=== PATIENT | male | born 1970 ===

== ENCOUNTER 2019-03-18 13:32 | Inpatient (IN) | payer MEDICAID ==
[2019-03-18 13:47] VITALS: BMI 20.7
[2019-03-18 13:48] VITALS: O2SAT 98
[2019-03-18] MEDS ORDERED: Sodium Chloride 0.9% 1,000 ML IV STA ×3 (14:12→18:58)
--- NOTE | 2019-03-18 14:19 | ED PDOC ---
Arrival/HPI - General Chief Complaint: High Blood Sugar Historian: Patient - History of Present Illness Narrative History of Present Illness (Text): 03/18/19 14:20 48 year old male, with past medical history of diabetes, presents to emergency department with complaints of foot pain for the past 2 days. Patient states his legs collapsed while walking and describes the pain as "throbbing." He also notes last taking metaformin for his diabetes three weeks ago, and states that he has no doctor currently due to his recent move. He also reports not having his glucometer or any other medical equipment with him since his recent divorce. Patient's glucose levels were found to be over 500 at triage. Patient admits to cocaine use, and states most recent use was a week ago. He denies any fevers, chest pain, or any other somatic complaints. Time/Duration: Other (2 days ) Symptom Onset: Gradual Symptom Course: Unchanged Quality: Throbbing Activities at Onset: Light Past Medical History - Provider Review Nursing Documentation Reviewed: Yes - Infectious Disease Hx of Infectious Diseases: None - Cardiac Hx Cardiac Disorders: No - Endocrine/Metabolic Hx Diabetes Mellitus Type 2: Yes - Hematological/Oncological Hx Blood Disorders: No - Psychiatric Hx Substance Use: Yes - Anesthesia Hx Anesthesia: No Hx Anesthesia Reactions: No Family/Social History - Physician Review Nursing Documentation Reviewed: Yes Family/Social History: Unknown Family HX Smoking Status: Unknown If Ever Smoked Hx Alcohol Use: Yes Frequency of alcohol use: Socially Hx Substance Use: Yes Substance used: cocaine Allergies/Home Meds Allergies/Adverse Reactions: Allergies No Known Allergies Allergy (Verified 03/18/19 13:47) Home Medications: Home Meds Medication Instructions Recorded Confirmed MetFORMIN [glucOPHAGE] 0 mg PO BID 03/18/19 03/18/19 Review of Systems - Physician Review All systems were reviewed & negative as marked: Yes - Review of Systems Constitutional: absent: Fevers Cardiovascular: absent: Chest Pain Musculoskeletal: Other (bilateral foot pain) Physical Exam - Physical Exam Narrative Physical Exam (Text): 03/18/19 14:20 Constitutional: No acute distress. Head: Normocephalic. Atraumatic. Eyes: PERRL. ENT: Moist mucous membranes. Neck: Supple. Cardiovascular: Regular rate. Chest: No tenderness. Respiratory: Clear to auscultation bilaterally. GI: Soft. Nontender. Nondistended. Back: No CVA tenderness. Musculoskeletal: Swelling, tenderness, errythema in the bilateral lower extremities, full ROM, DP pulses 2+ Skin: No rash. Neurologic: Alert, no focal deficit. Vital Signs Reviewed: Yes Vital Signs Temp Pulse Resp BP Pulse Ox 03/18/19 13:47 98.2 F 69 16 132/75 98 Temperature: Afebrile Blood Pressure: Normal Pulse: Regular Respiratory Rate: Normal Appearance: Positive for: Well-Appearing, Non-Toxic, Comfortable Pain Distress: None Mental Status: Positive for: Alert and Oriented X 3 Medical Decision Making ED Course and Treatment: 03/18/19 14:32 Impression: 48 year old male presents to emergency department for foot pain for the past two days. Plan: -- Labs -- EKG -- Chest X-ray -- IV Fluids -- X-ray right foot -- X-ray left foot -- Urinalysis -- US Duplex Lower Extremities -- Reassess and disposition Prior Visits: Notes and results from previous visits were reviewed. Progress Notes: 03/18/19 15:50 EKG: Ordered, reviewed, and independently interpreted the EKG. Rate : 62 BPM Rhythm : NSR Interpretation : No ST t-wave changes Dopper negative for DVT. XRs negative for fracture or dislocation CXR no acute disease. Patient requires admission for antibiotics for cellulitis with severe hyperglycemia, uncontrolled diabetes. - RAD Interpretation Radiology Orders: 03/18/19 14:12 CHEST PORTABLE [RAD] Stat 03/18/19 14:14 DUPLEX LOWER EXTRM VEIN BILAT [US] Stat - Medication Orders Current Medication Orders: Sodium Chloride (Sodium Chloride 0.9%) 1,000 mls @ 999 mls/hr IV .Q1H1M STA Stop: 03/18/19 15:12 - Scribe Statement The provider has reviewed the documentation as recorded by the Scribe Lavinia Lomas All medical record entries made by the Scribe were at my direction and personally dictated by me. I have reviewed the chart and agree that the record accurately reflects my personal performance of the history, physical exam, medical decision making, and the department course for this patient. I have also personally directed, reviewed, and agree with the discharge instructions and disposition. Disposition/Present on Arrival - Present on Arrival Any Indicators Present on Arrival: No History of DVT/PE: No History of Uncontrolled Diabetes: No Urinary Catheter: No History of Decub. Ulcer: No History Surgical Site Infection Following: None - Disposition Have Diagnosis and Disposition been Completed?: Yes Diagnosis: Cellulitis, Hyperglycemia Disposition: HOSPITALIZED Disposition Time: 17:00 Patient Plan: Admission Condition: FAIR
[2019-03-18 14:30] LABS: URINE BILIRUBIN NEGATIVE (NEGATIVE); URINE BLOOD NEGATIVE (NEGATIVE); URINE GLUCOSE (UA) >=1000 mg/dL (NEGATIVE); URINE LEUKOCYTE ESTERASE NEGATIVE Leu/uL (NEGATIVE); URINE PROTEIN NEGATIVE mg/dL (<30 mg/dL); URINE UROBILINOGEN 0.2 E.U./dL (<1 E.U./dL)
[2019-03-18 14:33] LABS: URINE APPEARANCE CLEAR (CLEAR); URINE COLOR YELLOW (YELLOW)
[2019-03-18 15:03] LABS: BARBITURATES, UR NEGATIVE (NEGATIVE); BENZODIAZEPINES, UR NEGATIVE (NEGATIVE); OPIATES, UR POSITIVE (NEGATIVE); PHENCYCLIDINE, UR NEGATIVE (NEGATIVE)
[2019-03-18 15:27] LABS: BASO # 0.01 K/mm3 (0.0-2.0); BASO % 0.1 % (0.0-3.0); EOS % 0.1 % (1.5-5.0); HEMOGLOBIN 12.7 g/dL (14.0-18.0); LYMPH # 1.1 (1.2-3.4); LYMPH % 7.7 % (22.0-35.0); MEAN CELL VOLUME 88.9 fl (80.0-105.0); MEAN CORPUSCULAR HEMOGLOBIN 30.1 pg (25.0-35.0); MEAN CORPUSCULAR HGB CONC 33.9 g/dl (31.0-37.0); MEAN PLATELET VOLUME 9.6 fl (7.0-11.0); MONO # 0.5 (0.1-0.6); MONO % 3.4 % (1.0-6.0); RBC 4.22 10^6/uL (3.5-6.1); RED CELL DISTRIBUTION WIDTH 13.5 % (11.5-14.5); WHITE BLOOD COUNT 13.7 10^3/uL (4.5-11.0)
[2019-03-18 15:36] LABS: INR 0.99; PARTIAL THROMBOPLASTIN TIME 28.3 Seconds (26.9-38.3)
[2019-03-18 15:50] LABS: VENOUS BLOOD GAS BASE EXCESS 2.3 mmol/L (0.0-2.0); VENOUS BLOOD GAS PO2 30 mm/Hg (30-55); VENOUS BLOOD PH 7.33 (7.32-7.43)
[2019-03-18 16:06] LABS: ALB/GLOB RATIO 1.5 (1.1-1.8); ALT/SGPT 51 U/L (7-56); AST/SGOT 39 U/L (17-59); BLOOD UREA NITROGEN 18 mg/dL (7-21); CALCIUM 9.3 mg/dL (8.4-10.5); GFR NON-AFRICAN AMERICAN > 60
[2019-03-18] MEDS ORDERED: Insulin Regular 1 UNITS/0.01 ML ML SC STA (17:23)
[2019-03-18] MEDS ORDERED: cefTRIAXone 1 gm 1 GM/100 ML BAG IVPB STA (17:24)
[2019-03-18] MEDS ORDERED: Dextrose 50% SYRINGE Inj (50 ml) IV PRN (18:39)
[2019-03-18] MEDS ORDERED: Enoxaparin 30 mg Syringe SC SCH (18:45)
[2019-03-18] MEDS ORDERED: Iohexol 240 (50 ml) ONE (19:05)
--- NOTE | 2019-03-18 19:14 | CP.PCM.HP ---
History of Present Illness - History of Present Illness History of Present Illness: Angel Daniels, , PGY1 H&P for Dr French LaboyC: b/l ankle pain/swelling x2 days 48 y/o male with PMH of DM2 presents to the ED with b/l ankle pain/swelling x2 days. Pain is 8/10, sharp, intermittent, alleviated by elevating the leg, worsens with walking, no radiation. It is associated with swelling limited to ankle area b/l, burning sensation. He denied trauma, recent infection/illness, fever, chills. Patient reports that he is diabetic for 2 years, incompliant with medication, does not f/u with PMD/podiatry/opthalmology. He denies hospitalization related to hyperglycemia/DKA. ROS positive for: polyurea, polydipsea, urinary urgency, blurry vision, 40 LB unintentional weight loss in 5 month, low energy, fatigue. ROS negative for: CP, SOB, cough, BARON, dizziness, hemoptysis, hematemesis, calf muscle swelling/pain PMH: DM2 PSH: abd surgery for ruptured gastric ulcer Meds: metformin 500 bid (did not take for 3 weeks) All:NDKA FH: dose not know SH: smokes 10 cigarettes/day x10 years, denies illicit drugs/alcohol PMD: none Pharmacy: none Present on Admission - Present on Admission Any Indicators Present on Admission: Yes History of Uncontrolled Diabetes: Yes Past Patient History - Infectious Disease Hx of Infectious Diseases: None - Past Social History Smoking Status: Unknown If Ever Smoked - CARDIAC Hx Cardiac Disorders: No - ENDOCRINE/METABOLIC Hx Diabetes Mellitus Type 2: Yes - HEMATOLOGICAL/ONCOLOGICAL Hx Blood Disorders: No - PSYCHIATRIC Hx Substance Use: Yes - ANESTHESIA Hx Anesthesia: No Hx Anesthesia Reactions: No Meds Allergies/Adverse Reactions: Allergies Allergy/AdvReac Type Severity Reaction Status Date / Time No Known Allergies Allergy Verified 03/18/19 13:47 Physical Exam - Constitutional Appears: Non-toxic, Cachectic - Head Exam Head Exam: ATRAUMATIC, NORMAL INSPECTION, NORMOCEPHALIC - Eye Exam Eye Exam: EOMI, Normal appearance, PERRL Pupil Exam: NORMAL ACCOMODATION, PERRL - ENT Exam ENT Exam: Mucous Membranes Moist, Normal Exam - Neck Exam Neck exam: Positive for: Normal Inspection. Negative for: Lymphadenopathy - Respiratory Exam Respiratory Exam: Clear to Auscultation Bilateral, NORMAL BREATHING PATTERN. absent: Rhonchi, Wheezes - Cardiovascular Exam Cardiovascular Exam: REGULAR RHYTHM, +S1, +S2. absent: JVD, RRR - GI/Abdominal Exam GI & Abdominal Exam: Normal Bowel Sounds, Soft. absent: Guarding, Rigid, Tenderness Additional comments: mid-abdominal healed scar - Expanded Lower Extremities Exam Left Ankle exam: erythema, swelling, tenderness Right Ankle exam: erythema, swelling, tenderness - Back Exam Back exam: NORMAL INSPECTION. absent: rash noted, tenderness - Neurological Exam Neurological exam: Alert, CN II-XII Intact, Oriented x3, Reflexes Normal - Psychiatric Exam Psychiatric exam: Anxious, Depressed - Skin Skin Exam: Erythema (ankle b/l. no open wound, no discharge) Results - Vital Signs Recent Vital Signs: Last Vital Signs Temp 98.2 F 03/18/19 13:47 Pulse 63 03/18/19 16:11 Resp 16 03/18/19 16:11 BP 109/67 03/18/19 16:11 Pulse Ox 98 03/18/19 16:11 - Labs Result Diagrams: 03/18/19 15:00 03/18/19 15:00 Labs: Laboratory Results - last 24 hr 03/18/19 03/18/19 03/18/19 13:39 14:20 14:20 WBC RBC Hgb Hct MCV MCH MCHC RDW Plt Count MPV Neut % (Auto) Lymph % (Auto) [place] % (Auto) Eos % (Auto) Baso % (Auto) Lymph # (Auto) [place] # (Auto) Eos # (Auto) Baso # (Auto) Absolute Neuts (auto) ESR PT INR APTT pO2 VBG pH VBG pCO2 VBG HCO3 VBG O2 Sat (Calc) VBG Base Excess Sodium Potassium Chloride Carbon Dioxide Anion Gap BUN Creatinine Est GFR ( Amer) Est GFR (Non-Af Amer) POC Glucose (mg/dL) > 500 H* Random Glucose Calcium Phosphorus Magnesium Total Bilirubin AST ALT Alkaline Phosphatase Total Creatine Kinase Total Protein Albumin Globulin Albumin/Globulin Ratio Urine Color Yellow Urine Appearance Clear Urine pH 6.0 Ur Specific Erin 1.010 Urine Protein Negative Urine Glucose (UA) >=1000 Urine Ketones 40 H Urine Blood Negative Urine Nitrate Negative Urine Bilirubin Negative Urine Urobilinogen 0.2 Ur Leukocyte Esterase Negative Urine Opiates Screen Positive H Urine Methadone Screen Negative Ur Barbiturates Screen Negative Ur Phencyclidine Scrn Negative Ur Amphetamines Screen Negative U Benzodiazepines Scrn Negative U Oth Cocaine Metabols Positive H U Cannabinoids Screen Negative 03/18/19 03/18/19 03/18/19 15:00 15:00 15:00 WBC 13.7 H RBC 4.22 Hgb 12.7 L Hct 37.5 L MCV 88.9 MCH 30.1 MCHC 33.9 RDW 13.5 Plt Count 199 MPV 9.6 Neut % (Auto) 88.7 H Lymph % (Auto) 7.7 L [place] % (Auto) 3.4 Eos % (Auto) 0.1 L Baso % (Auto) 0.1 Lymph # (Auto) 1.1 L [place] # (Auto) 0.5 Eos # (Auto) 0.0 Baso # (Auto) 0.01 Absolute Neuts (auto) 12.17 H ESR 32 H PT 11.0 INR 0.99 APTT 28.3 pO2 VBG pH VBG pCO2 VBG HCO3 VBG O2 Sat (Calc) VBG Base Excess Sodium 135 Potassium 4.2 Chloride 94 L Carbon Dioxide 29 Anion Gap 16 BUN 18 Creatinine 0.6 L Est GFR ( Amer) > 60 Est GFR (Non-Af Amer) > 60 POC Glucose (mg/dL) Random Glucose 404 H* Calcium 9.3 Phosphorus 4.1 Magnesium 1.7 Total Bilirubin 0.7 AST 39 ALT 51 Alkaline Phosphatase 92 Total Creatine Kinase 69 Total Protein 6.7 Albumin 4.0 Globulin 2.7 Albumin/Globulin Ratio 1.5 Urine Color Urine Appearance Urine pH Ur Specific Erin Urine Protein Urine Glucose (UA) Urine Ketones Urine Blood Urine Nitrate Urine Bilirubin Urine Urobilinogen Ur Leukocyte Esterase Urine Opiates Screen Urine Methadone Screen Ur Barbiturates Screen Ur Phencyclidine Scrn Ur Amphetamines Screen U Benzodiazepines Scrn U Oth Cocaine Metabols U Cannabinoids Screen 03/18/19 15:40 WBC RBC Hgb Hct MCV MCH MCHC RDW Plt Count MPV Neut % (Auto) Lymph % (Auto) [place] % (Auto) Eos % (Auto) Baso % (Auto) Lymph # (Auto) [place] # (Auto) Eos # (Auto) Baso # (Auto) Absolute Neuts (auto) ESR PT INR APTT pO2 30 VBG pH 7.33 VBG pCO2 56.0 VBG HCO3 29.5 H VBG O2 Sat (Calc) 68.6 H VBG Base Excess 2.3 H Sodium Potassium Chloride Carbon Dioxide Anion Gap BUN Creatinine Est GFR ( Amer) Est GFR (Non-Af Amer) POC Glucose (mg/dL) Random Glucose Calcium Phosphorus Magnesium Total Bilirubin AST ALT Alkaline Phosphatase Total Creatine Kinase Total Protein Albumin Globulin Albumin/Globulin Ratio Urine Color Urine Appearance Urine pH Ur Specific [place] Urine Protein Urine Glucose (UA) Urine Ketones Urine Blood Urine Nitrate Urine Bilirubin Urine Urobilinogen Ur Leukocyte Esterase Urine Opiates Screen Urine Methadone Screen Ur Barbiturates Screen Ur Phencyclidine Scrn Ur Amphetamines Screen U Benzodiazepines Scrn U Oth Cocaine Metabols U Cannabinoids Screen Assessment & Plan - Assessment and Plan (Free Text) Assessment: 48 y/o male with PMH of DM2 presents to the ED with b/l ankle pain/swelling x2 days. Found to have hyperglycemia. Patient is admitted to med surg for hyperglycemia management and work up for LE pain/edema Plan: Hyperglycemia in the setting of uncontrolled DM and meds non compliance: -BG 500 on admission. no acidosis, no AG, no lytes abnormalities. Patient is not in DKA -VB.33/56/30 -IVF NS boluses 3L, then @150 cc/hr -ISS-med -accucheck -started glipizide 5 mg daily -UA: increased ketones -albumin/globulin ratio B/l ankle pain/ edema: -LE US negative for DVT -ESR 32 -started abx vanco/rocephin -tylenol prn for moderate pain, ultram prn for severe pain -f/u XR b/l foot -f/u blood cx Diabetic neuropathy: -started neurontin 200 tid h/o weight loss: -CT A/P w/ po contrast -CT chest -f/u hepatitis panel, HIV testing h/o smoking: -started nicotine patch 14 mg td -counseled for cessation -UDS: positive for opiates/cocaine (patient denied) Anxiety: -patient received psychtherpy on the past -not on any meds PPX: -DVT: SCD, lovenox -GI: pepcid Case reviewed and plan discussed with attending Dr Lulu Daniels, DO -
[2019-03-18] MEDS ORDERED: Insulin Reg-MEDIUM-Coverage SC SCH (22:00)
[2019-03-18] MEDS ORDERED: Sodium Chloride 0.9% 1,000 ML IV SCH (22:00)
[2019-03-18 23:25] LABS: ARTERIAL BLOOD GAS HCO3 29.2 mmol/L (21-28); ARTERIAL BLOOD GAS O2 SAT 99.6 % (95-98); ARTERIAL BLOOD GAS PCO2 46 mm/Hg (35-45); ARTERIAL BLOOD GAS PH 7.41 (7.35-7.45); ARTERIAL BLOOD GAS TCO2 30.6 mmol.L (22-28)
[2019-03-19 06:51] LABS: BASO # 0.01 K/mm3 (0.0-2.0); BASO % 0.1 % (0.0-3.0); EOS % 0.4 % (1.5-5.0); HEMOGLOBIN 12.9 g/dL (14.0-18.0); LYMPH % 18.6 % (22.0-35.0); MEAN CORPUSCULAR HEMOGLOBIN 29.7 pg (25.0-35.0); MEAN CORPUSCULAR HGB CONC 33.7 g/dl (31.0-37.0); MEAN PLATELET VOLUME 9.4 fl (7.0-11.0); MONO # 0.6 (0.1-0.6); MONO % 5.2 % (1.0-6.0); RBC 4.35 10^6/uL (3.5-6.1); RED CELL DISTRIBUTION WIDTH 13.6 % (11.5-14.5); WHITE BLOOD COUNT 10.7 10^3/uL (4.5-11.0)
[2019-03-19 06:57] LABS: IRON 59 ug/dL (45-180)
[2019-03-19 06:59] LABS: LDL CHOLESTEROL 97 mg/dL (0-129)
[2019-03-19 07:06] LABS: % IRON SATURATION 30 % (20-55); TOTAL IRON BINDING CAPACITY 193 ug/dL (261-462)
[2019-03-19] MEDS ORDERED: Insulin Reg-HIGH-Coverage SC SCH (07:30)
[2019-03-19 07:58] LABS: ALB/GLOB RATIO 1.1 (1.1-1.8); ALBUMIN 2.9 g/dL (3.0-4.8); ALT/SGPT 39 U/L (7-56); AST/SGOT 32 U/L (17-59); BLOOD UREA NITROGEN 18 mg/dL (7-21); CALCIUM 8.3 mg/dL (8.4-10.5); GFR NON-AFRICAN AMERICAN > 60; HDL CHOLESTEROL 55 mg/dL (29-60)
[2019-03-19 08:23] VITALS: BP 121/77; PULSE 61; RESP 18; TEMP 98.3
--- NOTE | 2019-03-19 09:06 | CT ---
Date of service: 03/18/2019 PROCEDURE: CT Chest, Abdomen and Pelvis without intravenous contrast HISTORY: weight loss COMPARISON: None available. TECHNIQUE: Radiation dose: Total exam DLP = 324.23 mGy-cm. This CT exam was performed using one or more of the following dose reduction techniques: Automated exposure control, adjustment of the mA and/or kV according to patient size, and/or use of iterative reconstruction technique. FINDINGS: CT CHEST WITHOUT CONTRAST: LUNGS: Clear. No nodule, mass or consolidation. MEDIASTINUM: Unremarkable. Normal caliber aorta and pulmonary arterial trunk. Normal size heart. LYMPH NODES: Unremarkable. PLEURA: Unremarkable. No pneumothorax. No pleural fluid. BONES: Unremarkable. OTHER FINDINGS: None. CT ABDOMEN AND PELVIS: LIVER: Unremarkable. No gross lesion or ductal dilatation. GALLBLADDER AND BILE DUCTS: Not visualized PANCREAS: Pancreas is not visualized. There is nearly complete absence of abdominal fat and there is no IV contrast. Pancreas cannot be from non-opacified bowel loops and fluid in the stomach SPLEEN: Unremarkable. ADRENALS: The left adrenal is difficult to visualize due to lack of surrounding fat KIDNEYS AND URETERS: Unremarkable. No hydronephrosis. No solid mass. VASCULATURE: No aortic atherosclerotic calcification or mural plaque present. Unremarkable. No aortic aneurysm. BOWEL: Unremarkable. No obstruction. No gross mural thickening. There is mild constipation APPENDIX: Not visualized PERITONEUM: Unremarkable. No free fluid. No free air. LYMPH NODES: Unremarkable. No enlarged lymph nodes. BLADDER: Unremarkable. REPRODUCTIVE: Unremarkable. BONES: No acute fracture. OTHER FINDINGS: The report concurs with the preliminary [facility] report IMPRESSION: No acute intrathoracic findings. The abdominal exam is limited by lack of abdominal fat and lack of IV contrast.
--- NOTE | 2019-03-19 09:45 | RAD ---
Date of service: 03/18/2019 HISTORY: hyperglycemia COMPARISON: No prior. TECHNIQUE: 1 view obtained. FINDINGS: LUNGS: No active pulmonary disease. PLEURA: No significant pleural effusion identified, no pneumothorax apparent. CARDIOVASCULAR: No aortic atherosclerotic calcification present. Normal cardiac size. No pulmonary vascular congestion. OSSEOUS STRUCTURES: No significant abnormalities. VISUALIZED UPPER ABDOMEN: Normal. OTHER FINDINGS: None. IMPRESSION: No active disease.
[2019-03-19] MEDS ORDERED: cefTRIAXone 1 gm 1 GM/100 ML BAG IVPB SCH (10:00)
[2019-03-19] MEDS ORDERED: Vancomycin 1gm in NS 250ml 1 GM/250 ML BAG IVPB SCH (10:00)
[2019-03-19] MEDS ORDERED: Enoxaparin 30 mg Syringe SC SCH (10:00)
--- NOTE | 2019-03-19 10:45 | RAD ---
Date of service: 03/18/2019 PROCEDURE: Left Foot Radiographs. HISTORY: foot pain, swelling, erythema COMPARISON: None. TECHNIQUE: 3 views obtained. FINDINGS: BONES: Normal. No fracture. JOINTS: Normal. SOFT TISSUES: Normal. OTHER FINDINGS: None. IMPRESSION: Normal left foot radiographs.
--- NOTE | 2019-03-19 10:46 | RAD ---
Date of service: 03/18/2019 PROCEDURE: Right Foot Radiographs. HISTORY: foot pain, swelling, erythema COMPARISON: None. TECHNIQUE: 3 views obtained. FINDINGS: BONES: Normal. No fracture. JOINTS: Normal. SOFT TISSUES: Normal. OTHER FINDINGS: None. IMPRESSION: Normal right foot radiographs.
[2019-03-19] MEDS ORDERED: Insulin Reg-LOW-Coverage SC SCH (11:30)
[2019-03-19 11:47] LABS: HEPATITIS B SURFACE AG Negative (NEGATIVE)
[2019-03-19 11:53] LABS: HEPATITIS A IGM NEGATIVE (NEGATIVE); HEPATITIS B CORE AB NEGATIVE (NEGATIVE)
[2019-03-19 12:28] LABS: FOLATE 10.5 ng/mL
[2019-03-19 12:36] LABS: HEPATITIS C ANTIBODY REACTIVE (NEGATIVE)
--- NOTE | 2019-03-19 13:28 | CARD ---
APPROVED REPORT Date of service: 03/18/2019 EKG Measurement Heart [id number] <Conclusion> Normal sinus rhythm Normal ECG
--- NOTE | 2019-03-19 13:55 | CP.PCM.DIS ---
<Angel Daniels - Last Filed: 03/19/19 13:44> Provider - Provider Date of Admission: 03/18/19 17:33 Attending physician: Jovana Lawson MD Primary care physician: NO PRIMARY CARE PROVIDER Consults: 03/18/19 18:13 Social Work Referral Routine Comment: Patient recently evicted from home, homeless Physician Instructions: Reason For Exam: Protocol 03/19/19 07:41 Endocrinology Consult Routine Comment: Consulting Provider: Naty Mendoza Consulting Physician: Naty Mendoza Reason for Consult: hyperglycemia Time Spent in preparation of Discharge (in minutes): 35 Hospital Course - Lab Results Lab Results: Most Recent Lab Values WBC 10.7 10^3/uL (4.5-11.0) D 03/19/19 05:00 RBC 4.35 10^6/uL (3.5-6.1) 03/19/19 05:00 Hgb 12.9 g/dL (14.0-18.0) L 03/19/19 05:00 Hct 38.3 % (42.0-52.0) L 03/19/19 05:00 MCV 88.0 fl (80.0-105.0) 03/19/19 05:00 MCH 29.7 pg (25.0-35.0) 03/19/19 05:00 MCHC 33.7 g/dl (31.0-37.0) 03/19/19 05:00 RDW 13.6 % (11.5-14.5) 03/19/19 05:00 Plt Count 192 10^3/uL (120.0-450.0) 03/19/19 05:00 MPV 9.4 fl (7.0-11.0) 03/19/19 05:00 Neut % (Auto) 75.7 % (50.0-68.0) H 03/19/19 05:00 Lymph % (Auto) 18.6 % (22.0-35.0) L 03/19/19 05:00 [place] % (Auto) 5.2 % (1.0-6.0) 03/19/19 05:00 Eos % (Auto) 0.4 % (1.5-5.0) L 03/19/19 05:00 Baso % (Auto) 0.1 % (0.0-3.0) 03/19/19 05:00 Lymph # (Auto) 2.0 (1.2-3.4) 03/19/19 05:00 [place] # (Auto) 0.6 (0.1-0.6) 03/19/19 05:00 Eos # (Auto) 0.0 (0.0-0.7) 03/19/19 05:00 Baso # (Auto) 0.01 K/mm3 (0.0-2.0) 03/19/19 05:00 Absolute Neuts (auto) 8.09 (1.4-6.5) H 03/19/19 05:00 ESR 32 mm/hr (0.0-15.0) H 03/18/19 15:00 PT 11.0 SECONDS (9.4-12.5) 03/18/19 15:00 INR 0.99 03/18/19 15:00 APTT 28.3 Seconds (26.9-38.3) 03/18/19 15:00 pCO2 46 mm/Hg (35-45) H 03/18/19 23:00 pO2 91.0 mm/Hg (80-100) 03/18/19 23:00 HCO3 29.2 mmol/L (21-28) H 03/18/19 23:00 ABG pH 7.41 (7.35-7.45) 03/18/19 23:00 ABG Total CO2 30.6 mmol.L (22-28) H 03/18/19 23:00 ABG O2 Saturation 99.6 % (95-98) H 03/18/19 23:00 ABG Base Excess 3.8 mmol/L (-2.0-3.0) H 03/18/19 23:00 ABG Potassium 3.8 mmol/L (3.6-5.2) 03/18/19 23:00 VBG pH 7.33 (7.32-7.43) 03/18/19 15:40 VBG pCO2 56.0 (40-60) 03/18/19 15:40 VBG HCO3 29.5 mmol/l (21-28) H 03/18/19 15:40 VBG O2 Sat (Calc) 68.6 % (40-65) H 03/18/19 15:40 VBG Base Excess 2.3 mmol/L (0.0-2.0) H 03/18/19 15:40 Sodium 133.0 mmol/L (132-148) 03/18/19 23:00 Chloride 97.0 mmol/L (98-107) L 03/18/19 23:00 Glucose 504 mg/dl (75-110) H* 03/18/19 23:00 Lactate 0.7 mmol/L (0.7-2.1) 03/18/19 23:00 FiO2 21.0 % 03/18/19 23:00 Crit Value Called To Vivienne tamayo 03/18/19 23:00 [place] [id number] 03/18/19 23:00 Blood Gas Notified Time 232403/18/19 23:00 Sodium 136 mmol/L (132-148) 03/19/19 05:00 Potassium 3.8 mmol/L (3.6-5.0) 03/19/19 05:00 Chloride 100 mmol/L (98-107) 03/19/19 05:00 Carbon Dioxide 31 mmol/L (21-33) 03/19/19 05:00 Anion Gap 9 (10-20) L 03/19/19 05:00 BUN 18 mg/dL (7-21) 03/19/19 05:00 Creatinine 0.5 mg/dl (0.8-1.5) L 03/19/19 05:00 Est GFR ( Amer) > 60 03/19/19 05:00 Est GFR (Non-Af Amer) > 60 03/19/19 05:00 POC Glucose (mg/dL) 112 mg/dL (65-110) H 03/19/19 07:26 Random Glucose 111 mg/dL (70-110) H 03/19/19 05:00 Hemoglobin A1c 19.7 % (4.2-6.5) H 03/19/19 05:00 Calcium 8.3 mg/dL (8.4-10.5) L 03/19/19 05:00 Phosphorus 4.1 mg/dL (2.5-4.5) 03/18/19 15:00 Magnesium 1.7 mg/dL (1.7-2.2) 03/19/19 05:00 Iron 59 ug/dL (45-180) 03/19/19 05:00 TIBC 193 ug/dL (261-462) L 03/19/19 05:00 % Saturation 30 % (20-55) 03/19/19 05:00 Ferritin 128.0 ng/mL 03/19/19 05:00 Total Bilirubin 0.5 mg/dL (0.2-1.3) 03/19/19 05:00 AST 32 U/L (17-59) 03/19/19 05:00 ALT 39 U/L (7-56) 03/19/19 05:00 Alkaline Phosphatase 73 U/L (38-126) 03/19/19 05:00 Total Creatine Kinase 69 U/L (35-230) 03/18/19 15:00 C-React Prot High Sens > 15.00 mg/L (1.00-3.00) H 03/19/19 05:00 Total Protein 5.5 g/dL (5.8-8.3) L 03/19/19 05:00 Albumin 2.9 g/dL (3.0-4.8) L 03/19/19 05:00 Globulin 2.6 gm/dL 03/19/19 05:00 Albumin/Globulin Ratio 1.1 (1.1-1.8) 03/19/19 05:00 Triglycerides 54 mg/dL (35-160) 03/19/19 05:00 Cholesterol 168 mg/dL (130-200) 03/19/19 05:00 LDL Cholesterol Direct 97 mg/dL (0-129) 03/19/19 05:00 HDL Cholesterol 55 mg/dL (29-60) 03/19/19 05:00 Vitamin B12 908 pg/mL (239-931) 03/18/19 15:00 Folate 10.5 ng/mL 03/19/19 05:00 Free T4 0.87 ng/dL (0.78-2.19) 03/19/19 08:00 TSH 3rd Generation 0.34 mIU/mL (0.46-4.68) L 03/19/19 05:00 Arterial Blood Potassium 3.8 mmol/L (3.6-5.2) 03/18/19 23:00 Urine Color Yellow (YELLOW) 03/18/19 14:20 Urine Appearance Clear (CLEAR) 03/18/19 14:20 Urine pH 6.0 (4.7-8.0) 03/18/19 14:20 Ur Specific [place] 1.010 (1.005-1.035) 03/18/19 14:20 Urine Protein Negative mg/dL (<30 mg/dL) 03/18/19 14:20 Urine Glucose (UA) >=1000 mg/dL (NEGATIVE) 03/18/19 14:20 Urine Ketones 40 mg/dL (NEGATIVE) H 03/18/19 14:20 Urine Blood Negative (NEGATIVE) 03/18/19 14:20 Urine Nitrate Negative (NEGATIVE) 03/18/19 14:20 Urine Bilirubin Negative (NEGATIVE) 03/18/19 14:20 Urine Urobilinogen 0.2 E.U./dL (<1 E.U./dL) 03/18/19 14:20 Ur Leukocyte Esterase Negative Pratik/uL (NEGATIVE) 03/18/19 14:20 Urine Opiates Screen Positive (NEGATIVE) H 03/18/19 14:20 Urine Methadone Screen Negative (NEGATIVE) 03/18/19 14:20 Ur Barbiturates Screen Negative (NEGATIVE) 03/18/19 14:20 Ur Phencyclidine Scrn Negative (NEGATIVE) 03/18/19 14:20 Ur Amphetamines Screen Negative (NEGATIVE) 03/18/19 14:20 U Benzodiazepines Scrn Negative (NEGATIVE) 03/18/19 14:20 U Oth Cocaine Metabols Positive (NEGATIVE) H 03/18/19 14:20 U Cannabinoids Screen Negative (NEGATIVE) 03/18/19 14:20 B-Hydroxybutyrate 3.61 mM (0.02-0.27) H 03/18/19 15:00 Hepatitis A IgM Ab Negative (NEGATIVE) 03/19/19 05:00 Hep Bs Antigen Negative (NEGATIVE) 03/19/19 05:00 Hep B Core IgM Ab Negative (NEGATIVE) 03/19/19 05:00 Hepatitis C Antibody Reactive (NEGATIVE) 03/19/19 05:00 - Hospital Course Hospital Course: On admission: 48 y/o male with PMH of DM2 presents to the ED with b/l ankle pain/swelling x2 days. Pain is 8/10, sharp, intermittent, alleviated by elevating the leg, worsens with walking, no radiation. It is associated with swelling limited to ankle area b/l, burning sensation. He denied trauma, recent infection/illness, fever, chills. Patient reports that he is diabetic for 2 years, incompliant with medication, does not f/u with PMD/podiatry/opthalmology. He denies hospitalization related to hyperglycemia/DKA. ROS positive for: polyurea, polydipsea, urinary urgency, blurry vision, 40 LB unintentional weight loss in 5 month, low energy, fatigue. Hospital course: Blood glucose was 500 on admission. no acidosis, no AG, no lytes abnormalities. Patient is not in DKA. VBG 7.33/56/30. UA showed increased ketones. IVF NS boluses 3L given, then @150 cc/hr. ISS-med with accucheck. Started glipizide 5 mg daily. LE US negative for DVT, ESR 32, started abx vanco/rocephin, tylenol prn for moderate pain, ultram prn for severe pain. b/l foot XR normal. CT abdomen/pelvis/chest did not show any acute findings. Started nicotine patch 14 mg td and patient counseled for cessation. UDS was positive for opiates/cocaine. Today patient left AMA. Unable to give medications, patient left without being seen. Unable to explain risks. Patient left without signing AMA form. Discharge Exam - Additional Findings Additional findings: Patient left AMA Discharge Plan - Follow Up Plan Condition: FAIR Disposition: AGAINST MEDICAL ADVICE Instructions: Cellulitis (ED) Referrals: PCP,NO [Primary Care Provider] - <Etta Hernández R - Last Filed: 03/20/19 08:30> Provider - Provider Date of Admission: 03/18/19 17:33 Attending physician: Jovana Lawson MD Primary care physician: NO PRIMARY CARE PROVIDER Consults: 03/18/19 18:13 Social Work Referral Routine Comment: Patient recently evicted from home, homeless Physician Instructions: Reason For Exam: Protocol 03/19/19 07:41 Endocrinology Consult Routine Comment: Consulting Provider: Naty Mendoza Consulting Physician: Naty Mendoza Reason for Consult: hyperglycemia Hospital Course - Lab Results Lab Results: Micro Results 03/18/19 15:00 Blood-Venous Blood Culture - Preliminary Gram Positive Cocci 03/18/19 15:00 Blood-Venous Gram Stain - Final 03/18/19 14:20 Urine Random Urine Culture - Final Staphylococcus Aureus 03/18/19 15:15 Blood-Venous Blood Culture - Preliminary Gram Positive Cocci 03/18/19 15:15 Blood-Venous Gram Stain - Final Most Recent Lab Values WBC 10.7 10^3/uL (4.5-11.0) D 03/19/19 05:00 RBC 4.35 10^6/uL (3.5-6.1) 03/19/19 05:00 Hgb 12.9 g/dL (14.0-18.0) L 03/19/19 05:00 Hct 38.3 % (42.0-52.0) L 03/19/19 05:00 MCV 88.0 fl (80.0-105.0) 03/19/19 05:00 MCH 29.7 pg (25.0-35.0) 03/19/19 05:00 MCHC 33.7 g/dl (31.0-37.0) 03/19/19 05:00 RDW 13.6 % (11.5-14.5) 03/19/19 05:00 Plt Count 192 10^3/uL (120.0-450.0) 03/19/19 05:00 MPV 9.4 fl (7.0-11.0) 03/19/19 05:00 Neut % (Auto) 75.7 % (50.0-68.0) H 03/19/19 05:00 Lymph % (Auto) 18.6 % (22.0-35.0) L 03/19/19 05:00 [place] % (Auto) 5.2 % (1.0-6.0) 03/19/19 05:00 Eos % (Auto) 0.4 % (1.5-5.0) L 03/19/19 05:00 Baso % (Auto) 0.1 % (0.0-3.0) 03/19/19 05:00 Lymph # (Auto) 2.0 (1.2-3.4) 03/19/19 05:00 [place] # (Auto) 0.6 (0.1-0.6) 03/19/19 05:00 Eos # (Auto) 0.0 (0.0-0.7) 03/19/19 05:00 Baso # (Auto) 0.01 K/mm3 (0.0-2.0) 03/19/19 05:00 Absolute Neuts (auto) 8.09 (1.4-6.5) H 03/19/19 05:00 ESR 32 mm/hr (0.0-15.0) H 03/18/19 15:00 PT 11.0 SECONDS (9.4-12.5) 03/18/19 15:00 INR 0.99 03/18/19 15:00 APTT 28.3 Seconds (26.9-38.3) 03/18/19 15:00 pCO2 46 mm/Hg (35-45) H 03/18/19 23:00 pO2 91.0 mm/Hg (80-100) 03/18/19 23:00 HCO3 29.2 mmol/L (21-28) H 03/18/19 23:00 ABG pH 7.41 (7.35-7.45) 03/18/19 23:00 ABG Total CO2 30.6 mmol.L (22-28) H 03/18/19 23:00 ABG O2 Saturation 99.6 % (95-98) H 03/18/19 23:00 ABG Base Excess 3.8 mmol/L (-2.0-3.0) H 03/18/19 23:00 ABG Potassium 3.8 mmol/L (3.6-5.2) 03/18/19 23:00 VBG pH 7.33 (7.32-7.43) 03/18/19 15:40 VBG pCO2 56.0 (40-60) 03/18/19 15:40 VBG HCO3 29.5 mmol/l (21-28) H 03/18/19 15:40 VBG O2 Sat (Calc) 68.6 % (40-65) H 03/18/19 15:40 VBG Base Excess 2.3 mmol/L (0.0-2.0) H 03/18/19 15:40 Sodium 133.0 mmol/L (132-148) 03/18/19 23:00 Chloride 97.0 mmol/L (98-107) L 03/18/19 23:00 Glucose 504 mg/dl (75-110) H* 03/18/19 23:00 Lactate 0.7 mmol/L (0.7-2.1) 03/18/19 23:00 FiO2 21.0 % 03/18/19 23:00 Crit Value Called To Vivienne tamayo 03/18/19 23:00 [place] [id number] 03/18/19 23:00 Blood Gas Notified Time 6023 03/18/19 23:00 Sodium 136 mmol/L (132-148) 03/19/19 05:00 Potassium 3.8 mmol/L (3.6-5.0) 03/19/19 05:00 Chloride 100 mmol/L (98-107) 03/19/19 05:00 Carbon Dioxide 31 mmol/L (21-33) 03/19/19 05:00 Anion Gap 9 (10-20) L 03/19/19 05:00 BUN 18 mg/dL (7-21) 03/19/19 05:00 Creatinine 0.5 mg/dl (0.8-1.5) L 03/19/19 05:00 Est GFR ( Amer) > 60 03/19/19 05:00 Est GFR (Non-Af Amer) > 60 03/19/19 05:00 POC Glucose (mg/dL) 112 mg/dL (65-110) H 03/19/19 07:26 Random Glucose 111 mg/dL (70-110) H 03/19/19 05:00 Hemoglobin A1c 19.7 % (4.2-6.5) H 03/19/19 05:00 Calcium 8.3 mg/dL (8.4-10.5) L 03/19/19 05:00 Phosphorus 4.1 mg/dL (2.5-4.5) 03/18/19 15:00 Magnesium 1.7 mg/dL (1.7-2.2) 03/19/19 05:00 Iron 59 ug/dL (45-180) 03/19/19 05:00 TIBC 193 ug/dL (261-462) L 03/19/19 05:00 % Saturation 30 % (20-55) 03/19/19 05:00 Ferritin 128.0 ng/mL 03/19/19 05:00 Total Bilirubin 0.5 mg/dL (0.2-1.3) 03/19/19 05:00 AST 32 U/L (17-59) 03/19/19 05:00 ALT 39 U/L (7-56) 03/19/19 05:00 Alkaline Phosphatase 73 U/L (38-126) 03/19/19 05:00 Total Creatine Kinase 69 U/L (35-230) 03/18/19 15:00 C-React Prot High Sens > 15.00 mg/L (1.00-3.00) H 03/19/19 05:00 Total Protein 5.5 g/dL (5.8-8.3) L 03/19/19 05:00 Albumin 2.9 g/dL (3.0-4.8) L 03/19/19 05:00 Globulin 2.6 gm/dL 03/19/19 05:00 Albumin/Globulin Ratio 1.1 (1.1-1.8) 03/19/19 05:00 Triglycerides 54 mg/dL (35-160) 03/19/19 05:00 Cholesterol 168 mg/dL (130-200) 03/19/19 05:00 LDL Cholesterol Direct 97 mg/dL (0-129) 03/19/19 05:00 HDL Cholesterol 55 mg/dL (29-60) 03/19/19 05:00 Vitamin B12 908 pg/mL (239-931) 03/18/19 15:00 Folate 10.5 ng/mL 03/19/19 05:00 Procalcitonin 4.26 NG/ML (0.19-0.49) H 03/19/19 09:00 Free T4 0.87 ng/dL (0.78-2.19) 03/19/19 08:00 TSH 3rd Generation 0.34 mIU/mL (0.46-4.68) L 03/19/19 05:00 Arterial Blood Potassium 3.8 mmol/L (3.6-5.2) 03/18/19 23:00 Urine Color Yellow (YELLOW) 03/18/19 14:20 Urine Appearance Clear (CLEAR) 03/18/19 14:20 Urine pH 6.0 (4.7-8.0) 03/18/19 14:20 Ur Specific [place] 1.010 (1.005-1.035) 03/18/19 14:20 Urine Protein Negative mg/dL (<30 mg/dL) 03/18/19 14:20 Urine Glucose (UA) >=1000 mg/dL (NEGATIVE) 03/18/19 14:20 Urine Ketones 40 mg/dL (NEGATIVE) H 03/18/19 14:20 Urine Blood Negative (NEGATIVE) 03/18/19 14:20 Urine Nitrate Negative (NEGATIVE) 03/18/19 14:20 Urine Bilirubin Negative (NEGATIVE) 03/18/19 14:20 Urine Urobilinogen 0.2 E.U./dL (<1 E.U./dL) 03/18/19 14:20 Ur Leukocyte Esterase Negative Pratik/uL (NEGATIVE) 03/18/19 14:20 Urine Opiates Screen Positive (NEGATIVE) H 03/18/19 14:20 Urine Methadone Screen Negative (NEGATIVE) 03/18/19 14:20 Ur Barbiturates Screen Negative (NEGATIVE) 03/18/19 14:20 Ur Phencyclidine Scrn Negative (NEGATIVE) 03/18/19 14:20 Ur Amphetamines Screen Negative (NEGATIVE) 03/18/19 14:20 U Benzodiazepines Scrn Negative (NEGATIVE) 03/18/19 14:20 U Oth Cocaine Metabols Positive (NEGATIVE) H 03/18/19 14:20 U Cannabinoids Screen Negative (NEGATIVE) 03/18/19 14:20 B-Hydroxybutyrate 3.61 mM (0.02-0.27) H 03/18/19 15:00 Hepatitis A IgM Ab Negative (NEGATIVE) 03/19/19 05:00 Hep Bs Antigen Negative (NEGATIVE) 03/19/19 05:00 Hep B Core IgM Ab Negative (NEGATIVE) 03/19/19 05:00 Hepatitis C Antibody Reactive (NEGATIVE) 03/19/19 05:00 Attending/Attestation - Attestation I have personally seen and examined this patient.: Yes I have fully participated in the care of the patient.: Yes I have reviewed all pertinent clinical information, including history, physical exam and plan: Yes Notes (Text): Please note this DC summary is for 03/19/19 Patient seen and examined by me with resident at approximately 9:35AM on 03/19/19. Case including discharge plan discussed with resident. Agree with above with following additions/corrections. Patient is a 48 year old male with past medical history significant for DM2, andxiety, tobacco abuse, drug abuse, and noncompliance that presented to the emergency room with bilateral ankle pain/swelling for 2 days. Please see H&P for full details. Patient was found to have hyperglycemia with uncontrolled DM2, bilateral ankle pain and edema, diabetic neuropathy, weight loss, tobacco abuse, and history of anxiety. Patient was treated with insulin sliding scale, glipizide, and metformin. Patient was also treated with levemir. Subsystems Engineer was consulted. Recommendations were pending. Patient was also started on antibiotics for po ssible cellulitis. Patient afebrile, ankles did not appear cellulitic. Blood and urine cultures were pending. Left foot xray per radiologist showed normal left foot radiographs. Right foot xray per radiologist showed normal right foot radiographs. Chest/abd/pelvis CT per radiologist showed no acute intrathoracic findings. Further work up and treatment was pending. Cultures were pending. Patient asked the nurse to sign out. Prior to arriving to see patient to sign patient out AMA and also provide prescriptions, patient decided to leave the hospital without signing out AMA or being seen. Physical exam when seen in AM: General: Awake and alert lying in bed in no acute distress, cachectic appearing. HEENT: Normocephalic, atraumatic. Extraocular muscles intact. Pupils equal and reactive, no scleral icterus. Oropharynx is pink and moist. No pharyngeal erythema or exudate appreciated. Neck is supple. Cardiovascular: Normal rhythm. Normal S1 and S2. No murmurs, rubs, or gallops appreciated Pulmonary: Normal respiratory effort. No rhonchi, rales, or wheezing appreciated Gastrointestinal: Soft, nondistended. Nontender. Positive bowel sounds all 4 quadrants. No guarding. Musculoskeletal: Moves all extremities. No calf tenderness. Bilateral ankle and feet edema appreciated. Central nervous system: AAO x 3. CN 2-12 grossly intact. No focal deficits appreciated. Dermatologic: Skin warm and dry. Please see chart for full details.
--- NOTE | 2019-03-19 19:11 | CP.PCM.PN ---
Subjective - Date & Time of Evaluation Date of Evaluation: 03/19/19 Time of Evaluation: 19:09 - Subjective Subjective: Received call from [email or web address] today with blood culture positive for gram positives. Called patient at home, another man picked up, said patient will be back within the hour. I informed him that I will call back in 1 hour and he said that will be all right. 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 I called "Person to Notify" Jeni Stark who states she is patient's fiancee. I informed her of blood culture results, possibly life threatening and that he should come back to hospital for readmission. She said that she will definitively give him this message. She took Emergency department's phone number should he wish to call back. Objective - Vital Signs/Intake and Output Vital Signs (last 24 hours): Temp Pulse Resp BP Pulse Ox 98.3 F 61 18 121/77 98 03/19/19 08:21 03/19/19 08:21 03/19/19 08:21 03/19/19 08:21 03/19/19 08:21 - Labs Labs: 03/19/19 05:00 03/19/19 05:00 PT 11.0 SECONDS (9.4-12.5) 03/18/19 15:00 INR 0.99 03/18/19 15:00 APTT 28.3 Seconds (26.9-38.3) 03/18/19 15:00
[2019-03-19] MEDS ORDERED: Insulin Detemir 100 units/ml Vial (Levemir) SC SCH (22:00)
--- NOTE | 2019-03-20 00:44 | CON ---
ENDOCRINOLOGY CONSULTATION DATE: 03/19/2019 ROOM: 374. HISTORY OF PRESENT ILLNESS: This is a 48-year-old male with known history of type 2 diabetes, hypertension, presenting here with lower extremity cellulitis and is now being referred for diabetic evaluation because of marked hyperglycemic accelerations as noted thereof. PAST MEDICAL HISTORY: As mentioned above, history of type 2 diabetes, currently on metformin taken as 500 mg b.i.d., history of hypertension and dyslipidemia. FAMILY HISTORY: Positive for hypertension and diabetes. SOCIAL HISTORY: The patient is an active smoker, finishing half a pack a day for over 10 years now. Has a supportive family otherwise. REVIEW OF SYSTEMS: As mentioned above, admits to generalized body weakness with episodic bouts of dizziness and lightheadedness. No recent allergies or upper respiratory infections noted. No chest pains or palpitations. His oral intake has been variable with nausea and dyspepsia. Also admits to marked polyuria, nocturia, and polydipsia. Admits to lower extremity swelling and tenderness over the last 3 days or so prior to admission. PHYSICAL EXAMINATION: GENERAL: An average-built male, in no apparent distress. VITAL SIGNS: Blood pressure of 150/90, pulse of 100 beats per minute and regular, temperature 98, respirations 20, height is 5 feet 9 inches, weight is 140 pounds. HEENT: Head normocephalic. Eyes anicteric with pink conjunctivae. Funduscopy not possible at this time. Ears, nose, and throat otherwise normal. NECK: Supple. Thyroid gland is normal in size. No carotid bruits or any cervical adenopathy. CARDIOPULMONARY: Some adynamic precordium. S1, S2 is rapid and regular. LUNGS: Clear to auscultation. ABDOMEN: Flat, soft with positive bowel sounds. EXTREMITIES: There is bipedal edema with erythema and tenderness in the distal one-third of both lower extremities. Pulses are +2 bilaterally. LABORATORIES: His initial chemistry showed a BUN of 18, sodium 135, potassium 4.2, chloride 94, CO2 of 29, glucose 404, and creatinine 0.6. His glucose levels have ranged from 461 to over 500 mg/dL. His A1c is extremely elevated at 19.7. TSH is 0.34. ASSESSMENT: This is a 48-year-old male with uncontrolled and decompensated type 2 insulin-requiring diabetes with marked hyperglycemic accelerations related to a subtherapeutic regimen, presenting here with acute lower extremity hepatitis and is now being referred for diabetic evaluation and management. PLAN OF MANAGEMENT: We will modify his current dose regimen and switch him over to a dual oral hypoglycemic drug combination with metformin given as 850 mg b.i.d. and glipizide given as 10 mg b.i.d. before meals to both start today as ordered. We will also add basal insulin with Levemir given as 20 units subcutaneous at bedtime daily to start tonight. We will modify the coverage scale to a low-dose algorithm to obviate hypoglycemia and detailed orders have been given. We will obtain serial chemistries and supplement accordingly as needed. We will continue the IV hydration as ordered and obtain serial chemistries accordingly. We reinforced diabetic education and dietary instructions to include insulin self-administration as ordered. We will follow. Naty Mendoza MD
--- NOTE | 2019-03-20 11:09 | US ---
HISTORY: Leg pain and swelling. Evaluate for DVT PHYSICIAN(S): Brian Serrano MD. TECHNIQUE: Duplex sonography and color-flow Doppler with graded compression were used to evaluate the deep venous systems of both lower extremities. FINDINGS: The visualized deep venous systems of both lower extremities are sonographically normal and compressible. Normal wave forms and augmentation are seen. There is no sonographic evidence for deep venous thrombosis in the visualized segments of both lower extremities. IMPRESSION: No sonographic evidence for deep venous thrombosis in the visualized segments of both lower extremities.
--- NOTE | 2019-03-20 13:33 | CP.PCM.PN ---
<Angel Daniels - Last Filed: 03/20/19 13:29> Subjective - Date & Time of Evaluation Date of Evaluation: 03/20/19 Time of Evaluation: 13:29 - Subjective Subjective: Patient called at [phone] in regards to positive lab results of positive blood cultures for gram positive cocci. No answer, left a message to return to the hospital for further treatment. Objective - Vital Signs/Intake and Output Vital Signs (last 24 hours): Temp Pulse Resp BP Pulse Ox 98.3 F 61 18 121/77 98 03/19/19 08:21 03/19/19 08:21 03/19/19 08:21 03/19/19 08:21 03/19/19 08:21 - Labs Labs: 03/19/19 05:00 03/19/19 05:00 PT 11.0 SECONDS (9.4-12.5) 03/18/19 15:00 INR 0.99 03/18/19 15:00 APTT 28.3 Seconds (26.9-38.3) 03/18/19 15:00 <Etta Hernández - Last Filed: 03/20/19 15:31> Objective - Vital Signs/Intake and Output Vital Signs (last 24 hours): Temp Pulse Resp BP Pulse Ox 98.3 F 61 18 121/77 98 03/19/19 08:21 03/19/19 08:21 03/19/19 08:21 03/19/19 08:21 03/19/19 08:21 - Labs Labs: 03/19/19 05:00 03/19/19 05:00 PT 11.0 SECONDS (9.4-12.5) 03/18/19 15:00 INR 0.99 03/18/19 15:00 APTT 28.3 Seconds (26.9-38.3) 03/18/19 15:00 Addendum Addendum: Patient was also spoken to by emergency room physician. Patient was advised by ED to return to hospital for treatment of positive blood cultures. Pending call back as patient was again called today.
== END 2019-03-19 12:29 | disposition left against medical advice (07) | DRG 533 ==
LOC: ED 13:32 → ERH 17:33 → MERGE 17:33 → ERH 18:22 → 3RSO 19:25
PROVIDERS: ADMIT Internal Medicine; ATTEND Internal Medicine
DX: E11.65 Type 2 diabetes mellitus with hyperglycemia (principal); R78.81 Bacteremia; L03.90 Cellulitis, unspecified; F14.90 Cocaine use, unspecified, uncomplicated; R64 Cachexia; E11.40 Type 2 diabetes mellitus with diabetic neuropathy, unspecified; B95.2 Enterococcus as the cause of diseases classified elsewhere; E78.5 Hyperlipidemia, unspecified; I10 Essential (primary) hypertension; M25.571 Pain in right ankle and joints of right foot; M25.572 Pain in left ankle and joints of left foot; F17.210 Nicotine dependence, cigarettes, uncomplicated; F41.9 Anxiety disorder, unspecified; Z79.84 Long term (current) use of oral hypoglycemic drugs; Z87.11 Personal history of peptic ulcer disease; Z91.14 Patient's other noncompliance with medication regimen; Z68.20 Body mass index [BMI] 20.0-20.9, adult; Z59.0 Homelessness